=== PATIENT | female | born 1950 | race Caucasian/White ===

== ENCOUNTER → 2017-04-10 | Outpatient (CLI) | payer BC ==
[~2017-04-10] MED LIST: ACTONEL 5MG TABL5 MG PO; CALCIUM1 CAP PO; CLARITIN D TAB1 TAB PO
== END ==
LOC: MC.RAD 04-03 14:00
DX: Z12.31 Encounter for screening mammogram for malignant neoplasm of breast (principal)

== ENCOUNTER → 2018-04-11 | Outpatient (CLI) | payer MEDICARE, BC | LOC: MC.RAD 12:51 | DX: Z12.31 Encounter for screening mammogram for malignant neoplasm of breast (principal) ==

== ENCOUNTER 2018-05-30 11:00 | Outpatient (RCR) | payer MEDICARE, BC | END 2018-06-07 08:56 | disposition home or self-care (01) | LOC: WSC 11:00 | DX: M25.552 Pain in left hip (principal) | CPT/HCPCS: G8978-GP; G8979-GP ==

== ENCOUNTER → 2019-05-29 | Outpatient (CLI) | payer MEDICARE, BC | LOC: MC.RAD 04-16 13:45 | DX: Z12.31 Encounter for screening mammogram for malignant neoplasm of breast (principal) ==

== ENCOUNTER → 2020-05-31 | Outpatient (CLI) | payer MEDICARE, BC | LOC: MC.RAD 13:23 | DX: Z12.31 Encounter for screening mammogram for malignant neoplasm of breast (principal) ==

== ENCOUNTER → 2021-08-11 | Outpatient (CLI) | payer MEDICARE, BC | LOC: MC.RAD 06-23 13:00 | DX: Z12.31 Encounter for screening mammogram for malignant neoplasm of breast (principal); Z80.3 Family history of malignant neoplasm of breast ==